=== PATIENT | female | born 2000 | race Two or more races ===

== ENCOUNTER 2021-02-13 04:03 | Emergency (ER) | payer SELFPAY ==
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
[2021-02-13 05:05] LABS: ANION GAP 15.7 mEq/L (7-13); CHLORIDE,CL 111 mmol/L (98-107); SODIUM,NA 147 mmol/L (136-145)
[2021-02-13 05:09] LABS: ACETAMINOPHEN 0 ug/mL (10-30 (Therapeutic))
== END 2021-02-13 05:36 ==
LOC: DL.ED 04:03
DX: F10.120 Alcohol abuse with intoxication, uncomplicated (principal); S50.811A Abrasion of right forearm, initial encounter; S20.312A Abrasion of left front wall of thorax, initial encounter; S80.811A Abrasion, right lower leg, initial encounter; Y90.7 Blood alcohol level of 200-239 mg/100 ml; Y04.0XXA Assault by unarmed brawl or fight, initial encounter
CPT/HCPCS: 36415; 80053; 80143; 80179; 80307; 84703; 85025; 99284

== ENCOUNTER 2023-02-08 13:57 | Emergency (ER) | payer MEDICAID | END 2023-02-08 15:36 | disposition home or self-care (01) | LOC: DL.ED 13:57 | DX: Z32.01 Encounter for pregnancy test, result positive (principal); Z72.0 Tobacco use | CPT/HCPCS: 36415; 84702; 99283 ==